=== PATIENT | male | born 1950 | race Caucasian/White ===

== ENCOUNTER 2023-11-30 18:45 | Emergency (ER) | payer MEDICARE, BC, SELFPAY ==
[2023-11-30] VITALS (7 sets, daily range): BP systolic 123–142; BP diastolic 53–80; PULSE 95–107; RESP 17–18; TEMP 36.5–36.8; O2SAT 96–99; BMI 30.1
--- NOTE | 2023-11-30 19:04 | CT_ITS ---
PROCEDURE INFORMATION: Exam: CTA Abdomen and Pelvis With Contrast Exam date and time: 11/30/2023 8:26 PM Age: 73 years old Clinical indication: Other: Vomiting, diarrhea; Abdominal pain; Acute; Additional info: Acute diffuse crampy abd pain, vomiting diarrhea TECHNIQUE: Imaging protocol: Computed tomographic angiography of the abdomen and pelvis with contrast. Exam focused on the arteries. 3D rendering (Not supervised by radiologist): MIP and/or 3D reconstructed images were created by the technologist. Radiation optimization: All CT scans at this facility use at least one of these dose optimization techniques: automated exposure control; mA and/or kV adjustment per patient size (includes targeted exams where dose is matched to clinical indication); or iterative reconstruction. Contrast material: ISOVUE 370; Contrast volume: 80 ml; Contrast route: INTRAVENOUS (IV); COMPARISON: No relevant prior studies available. FINDINGS: Tubes, catheters and devices: Stimulator device is seen over the left gluteal region with lead at the epidural space of the lower thoracic spine. Aorta: No aortic aneurysm. No aortic dissection. Celiac trunk and mesenteric arteries: No occlusion or significant stenosis. Renal arteries: No occlusion or significant stenosis. Right iliac arteries: No occlusion or significant stenosis. Left iliac arteries: No occlusion or significant stenosis. Other arteries: Mild atheromatous disease is demonstrated, but no major arterial stenosis/occlusion. No aneurysm. Liver: No mass. Gallbladder and biliary ducts: Unremarkable. No calcified stones. No ductal dilation. Pancreas: Unremarkable. No mass. No ductal dilation. Spleen: Unremarkable. No splenomegaly. Adrenal glands: Unremarkable. No mass. Kidneys and ureters: Unremarkable. No solid mass. No hydronephrosis. Stomach and bowel: Trace diverticulosis seen descending colon. No abnormal bowel thickening or dilation. Appendix: No evidence of appendicitis. Intraperitoneal space: No visible free fluid. Lymph nodes: Unremarkable. No enlarged lymph nodes. Urinary bladder: Unremarkable. No mass. Reproductive: Unremarkable as visualized. Bones/joints: Previous right L5 laminectomy. Soft tissues: Unremarkable. IMPRESSION: 1. Normal CT angiogram abdomen and pelvis. 2. No visible acute intra-abdominal abnormality. 3. Incidental findings above.
--- NOTE | 2023-11-30 19:09 | ECG_ITS ---
APPROVED REPORT Exam: Resting ECG HR:104 bpm ECG Measurements Heart Rate 104 AXES OH 195 P 64 QRSd 129 QRS -63 QT 349 T 34 QTc 409 Conclusion Sinus tachycardia Right bundle branch block Incomplete left bundle branch block Electronically signed by : DOMINICK CHOUDHURY, 11/30/2023 21:01:19
--- NOTE | 2023-11-30 19:10 | ED_ITS ---
Discharge Plan Disposition Patient Disposition: Home, Self-Care Prescriptions Prescriptions: New ondansetron 4 mg tablet,disintegrating 4 mg PO Q6H PRN (Reason: nausea and vomiting) Qty: 10 0RF Referrals Follow up/Referrals: Esther Medrano [Primary Care Provider] - See instructions Activity Restrictions/Add. Instructions Additional Instructions/Restrictions: Call your family doctor to establish care for this visit to the emergency department and schedule follow-up within 48 hours to ensure improvement. If you have any worsening of your condition or any other concerning signs or symptoms, return to the emergency department or your primary care doctor for further evaluation. Be sure to stay plenty hydrated trying to drink at least 60 ounces of fluid a day. Clinical Impressions Clinical Impression: Vomiting and diarrhea Instructions Patient Instructions: DI for Diarrhea and Traveler's Diarrhea -- Adult, DI for Diarrhea and Traveler's Diarrhea -- Child, DI for Nausea -- Adult, DI for Nausea -- Child Print Language Print Language: Czech Discharge ED Provider: Leon Barrera General Adult HPI General Chief complaint: Nausea/Vomiting/Diarrhea Stated complaint: V/D, body aches Time Seen by Provider: 11/30/23 18:49 History of Present Illness HPI narrative: Please note that above description of symptoms, in this electronic medical record under categorization of recalled from ER triage doctor by RN are reflective of an initial nursing assessment, however, is not reflective of my full history and physical exam that was personally taken and clarified. Consequentially, this preceding description of symptoms, which may include the patient's categorized chief complaint in the EMR, do not reflect my personal clinical impression, and the ultimate description of history of present illness and patient stated complaints should be deferred to this section of the note. Unless stated otherwise or congruent with this section of the note, additional signs, symptoms, or incongruence should be interpreted as inaccurate with my clinical impression. Related Data Previous Rx's ?Medication ?Instructions ?Recorded ondansetron 4 mg disintegrating 4 mg PO Q6H PRN nausea and 11/30/23 tablet vomiting #10 tabs Allergies Allergy/AdvReac Type Severity Reaction Status Date / Time ciprofloxacin [From Cipro] Allergy Hives Verified 11/30/23 19:13 Sulfa (Sulfonamide Allergy Hives Verified 11/30/23 19:13 Antibiotics) [facility] Disclaimer: The information contained in this section may have been updated after the patient was seen, as this information can be updated by other users. Social History Smoking Status: Current every day smoker alcohol intake: never current occupational status: retired Travel in the last 8 weeks: None ROS Obtained: Yes All systems reviewed & no additional complaints except as documented Physical Exam General General appearance: alert Head Head exam: atraumatic and normocephalic Eye Eye exam: Present normal appearance, PERRL and EOMI Neck Neck exam: Present normal inspection, full ROM and trachea midline Respiratory Respiratory exam: Present normal lung sounds bilaterally; Absent respiratory distress, wheezes, stridor, accessory muscle use or prolonged expiratory phase Cardiovascular Cardiovascular exam: Present normal rhythm, tachycardia and other (Pulses equal symmetric in upper and lower extremities) Abdominal Exam Abdominal exam: Present soft, distention and tenderness; Absent guarding, rebound, rigidity or pulsatile mass Abdominal tenderness: Present diffuse and mild Extremities Exam Extremities exam: Absent edema Neurological Exam Neurological exam: Present alert, oriented X3 and CN II-XII intact; Absent motor sensory deficit Skin Skin exam: Present warm and dry; Absent diaphoresis or erythema Medical Decision Making Medical Records Medical records reviewed: Yes I reviewed the patient's medical records. Screening: Per USPSTF and CDC recommendations, given the prevalence of disease in our region, it is our hospital?s policy to screen for HIV and viral Hepatitis for all patients aged 18 and over and those with ongoing risk factors. Baljinder Inquiry Pt receiving controlled substance: No Baljinder was queried for this patient: No Vital Signs: 11/30/23 18:46 11/30/23 19:01 11/30/23 19:32 Temperature 98.3 F Temperature Source Oral Pulse Rate 106 H 107 H Pulse Rate [Left Radial] 107 H Respiratory Rate 17 Blood Pressure 126/80 123/53 L Blood Pressure [Right Arm] 126/80 Blood Pressure Mean [Right Arm] 95 Blood Pressure Source [Right Arm] Automatic Cuff Blood Pressure Position [Right Arm] Sitting 02 Sat by Pulse Oximetry 98 96 98 Oxygen Delivery Method Room Air Room Air Room Air 11/30/23 20:00 11/30/23 20:31 11/30/23 21:00 Temperature Temperature Source Pulse Rate 103 H 103 H 96 H Pulse Rate [Left Radial] Respiratory Rate Blood Pressure 126/69 142/70 H 125/59 L Blood Pressure [Right Arm] Blood Pressure Mean [Right Arm] Blood Pressure Source [Right Arm] Blood Pressure Position [Right Arm] 02 Sat by Pulse Oximetry 99 96 97 Oxygen Delivery Method Room Air Lab Data Lab Results 11/30/23 19:05: VBG pH 7.39, VBG pCO2 38.2, VBG pO2 30.8, VBG HCO3 22.7 L, VBG Total CO2 23.9, VBG O2 Saturation 60.4, VBG Base Excess -2.2, VBG Lactic Acid 1.4 11/30/23 19:18: WBC 4.7 L, RBC 4.34 L, Hgb 12.6 L, Hct 37.4 L, MCV 86.1, MCH 29.1, MCHC 33.8, RDW 15.1, Plt Count 165, MPV 7.9, Neut % (Auto) 91.2 H, Lymph % (Auto) 4.0 L, [place] % (Auto) 3.1, Eos % (Auto) 1.5, Baso % (Auto) 0.3, Neut # (Auto) 4.2, Lymph # (Auto) 0.2 L, [place] # (Auto) 0.1, Eos # (Auto) 0.1, Baso # (Auto) 0.0, Total Counted 100, Neutrophils % (Manual) 97 H, Monocytes % (Manual) 3, Platelet Estimate Normal, Anisocytosis 1+, Microcytosis 1+, Sodium 131 L, Potassium 4.5, Chloride 99, Carbon Dioxide 24, Anion Gap 12.5, BUN 9, Creatinine 1.10, Estimated Creat Clear 82, Estimated GFR 66, Est GFR ( Amer) 80, G lucose 169 H, Calcium 9.6, Total Bilirubin 0.7, AST 35, ALT 24, Alkaline Phosphatase 42, Troponin I < 0.01, C-Reactive Protein 4.7 H, Total Protein 7.0, Albumin 4.6, Globulin 2.4, Albumin/Globulin Ratio 1.9 H, Lipase 92 11/30/23 20:05: SARS-CoV-2 (PCR) Not detected, Influenza A Untype (PCR) Not detected, Influenza Type B (PCR) Not detected 11/30/23 19:18 11/30/23 19:18 Orders (Tests/Meds): ED MEDICATIONS Discontinued Medications Generic Name Dose Route Start Last Admin Trade Name Freq PRN Reason Stop Dose Admin Sodium Chloride 1,000 mls @ 999 mls/hr 11/30/23 19:03 11/30/23 19:41 Sod Chlor 0.9% 1000ml Bag IV 11/30/23 20:03 999 mls/hr .Q1H1M ONE Administration Iopamidol 80 ml 11/30/23 20:29 11/30/23 20:30 Iopamidol-370 (76%);100ml Bottle IV 11/30/23 20:30 80 ml ONCE ONE Administration Ketorolac Tromethamine 15 mg 11/30/23 19:14 11/30/23 19:41 Ketorolac 30mg/Ml Vial IV 11/30/23 19:15 15 mg ONCE ONE Administration Ondansetron HCl 4 mg 11/30/23 19:03 11/30/23 19:41 Ondansetron 4mg/2ml Vial IV 11/30/23 19:04 4 mg ONCE ONE Administration Sodium Chloride 40 ml 11/30/23 20:29 11/30/23 20:30 0.9 % Sodium Chloride 50 Ml Vial IV 11/30/23 20:30 40 ml ONCE ONE Administration Sodium Chloride 10 ml 11/30/23 20:29 11/30/23 20:30 Sodium Chloride 0.9% 10ml Syr (Rad Only) IV 11/30/23 20:30 10 ml ONCE ONE Administration ORDERS Category Date Time Status CT angio abdomen pelvis Stat Cat Scan 11/30/23 19:04 Completed CRP [C-Reactive Protein] Stat Lab 11/30/23 19:18 Completed Complete Blood Count Auto Diff Stat Lab 11/30/23 19:18 Completed Comprehensive Metabolic Panel Stat Lab 11/30/23 19:18 Completed Lipase Stat Lab 11/30/23 19:18 Completed Rapid PCR Covid and Flu A/B Stat Lab 11/30/23 20:05 Completed Troponin I Q3H Lab 11/30/23 22:15 Ordered Troponin I Q3H Lab 12/01/23 01:15 Ordered Troponin I Stat Lab 11/30/23 19:18 Completed Urinalysis and Microscopic Stat Lab 11/30/23 19:04 Ordered Blood Culture Stat Micro 11/30/23 19:18 Ordered Venous Blood Gas Stat RT 11/30/23 19:05 Completed HEART Score History (anamnesis): Slightly suspicious ECG: Normal Age: >65 years Risk factors: 1-2 risk factors Troponin: </= normal limit HEART Score: 3 Medical Decision Narrative: This is a 73-year-old male with history of hypertension, hyperlipidemia, diabetes, anxiety and depression, spinal stimulator presenting with multiple complaints. Patient states that he was at a wedding a couple days prior to this, felt well at that time. Since that time, initially felt short of breath with cough. Today started having vomiting and diarrhea that is nonbloody, nonbilious, not mucousy. Associated with diffuse, crampy abdominal pain that is worse around the perimeter of his abdomen. No fevers or chills, urinary symptoms, chest pain, shortness of breath, syncope, diaphoresis, lower extremity swelling, or any other concerns. Has not noticed anything that makes it better. Minimally able to keep p.o. intake down. Last bowel movement was about 3 hours prior to this and was watery. History was obtained via conversation with patient. On arrival, patient hemodynamically stable, alert, oriented x4, appropriate, GCS 15, moving all extremities spontaneously, pupils equal and reactive to light. Full physical exam performed and significant for very well- appearing male who is in no acute distress. He is tachycardic 110 bpm. No murmurs gallops or rubs. Lungs are clear to auscultation. Patient's abdomen is soft, but distended and tender diffusely. No overlying skin changes. Bowel sounds are normal. Primarily tender around the perimeter of his abdomen, but he is diffusely tender. Differential includes gastritis, enteritis, mesenteric ischemia, aortic pathology, UTI, ACS, [place], pancreatitis, diabetic emergency, among others. Patient placed on continuous cardiac monitoring and continuous pulse ox with initial blood pressure 126/80, heart rate 107, saturation 98% on room air. Independent interpretation of EKG shows sinus tachycardia 104 bpm with right bundle branch block morphology QRS 129. MT 195, QTc 409. Patient was given fluids and Zofran, Toradol for symptomatic management and correction of underlying abnormalities. Workup independently interpreted and significant for nonactionable CBC, but relative neutrophilia. Nonactionable chemistry, normal kidney function. Troponin negative. Lipase negative. CT angiogram of the abdomen and pelvis independently interpreted and significant for no acute intra- abdominal abnormality, no vascular abnormality, etc. See radiology read for full review of final results. Heart score 3. On reevaluation, patient tolerating p.o. intake. Vital signs improved moderately after fluids. 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 Because patient at baseline without signs or symptoms of clinical decompensation, deemed appropriate for discharge. Results were relayed to patient who voiced understanding and were agreeable to outpatient management and follow up. I discussed my clinical impression with patient and answered all questions. At this time, the evidence for any other entities in the differential is insufficient to warrant any further testing or ED observation. This was explained as well. Advisory was given that persistent or worsening symptoms require further evaluation. I confirmed the understanding of this discussion. [employer] disclaimer Much of this encounter note is an electronic conditioning machine operator spoken language to printed text. Electronic conditioning machine operator of the spoken language may permit errors. Although I have reviewed the note, some errors may still exist. Critical Care Critical Care Time Critical Care Time: No
[2023-11-30 19:26] LABS: Lactate Venous 1.4 mmol/L (0.4-2.0); VBG Base Excess -2.2 mmol/L (-2.4-2.3); VBG HCO3 22.7 mmol/L (23-30); VBG Oxygen Saturation 60.4 % (50-70); VBG PCO2 38.2 mmol/L (35-51); VBG PH 7.39 mmol/L (7.31-7.41); VBG PO2 30.8 mmol/L (28-40); VBG Total CO2 23.9 mmol/L (23-27)
[2023-11-30 19:32] LABS: Basophils % 0.3 % (0.1-2.0); Eosinophils # 0.1 K/mm3 (0.0-0.4); Eosinophils % 1.5 % (0.1-12.0); Hematocrit 37.4 % (42.0-52.0); Hemoglobin 12.6 g/dL (14.1-18.0); Lymphocytes # 0.2 K/mm3 (0.7-4.5); Mean Corpuscular HGB Conc 33.8 g/dL (31.8-35.4); Mean Corpuscular Hemoglobin 29.1 pg (27.0-31.2); Mean Corpuscular Volume 86.1 fl (80-94); Mean Platelet Volume 7.9 fl (7.4-10.4); Monocytes # 0.1 K/mm3 (0.1-1.0); Monocytes % 3.1 % (1.7-9.3); Neutrophils # 4.2 K/mm3 (1.8-7.8); Neutrophils % 91.2 % (37.0-80.0); Platelet Count 165 K/mm3 (142-424); Red Blood Count 4.34 M/mm3 (4.60-6.20); Red Cell Distribution Width 15.1 % (11.5-17.5); White Blood Count 4.7 K/mm3 (4.8-10.8)
[2023-11-30 19:34] LABS: MANUAL DIFFERENTIAL MANUAL DIFFERENTIAL (MANUAL DIFF)
[2023-11-30 19:41] LABS: Albumin Level 4.6 g/dl (3.5-5.0); Chloride 99 mmol/L (98-107); Potassium 4.5 mmoL/L (3.5-5.1); Sodium 131 mmol/L (136-145)
[2023-11-30] MEDS: 0.9 % SODIUM CHLORIDE 1000ML 1,000 ML 999 ML IV (19:41)
[2023-11-30] MEDS: ONDANSETRON 4MG/2ML VIAL 4 MG IV (19:41)
[2023-11-30] MEDS: KETOROLAC 30MG/ML VIAL 15 MG IV (19:41)
[2023-11-30 19:44] LABS: Alanine Aminotransferase 24 U/L (12-78); Albumin/Globulin Ratio 1.9 (1.1-1.8); Alkaline Phosphatase 42 U/L (38-126); Anion Gap 12.5 mEq/L (5-15); Aspartate Amino Transferase 35 U/L (17-59); Bilirubin,Total 0.7 mg/dl (0.2-1.3); Blood Urea Nitrogen 9 mg/dl (9-20); Calcium 9.6 mg/dl (8.4-10.2); Carbon Dioxide 24 mmol/L (22.0-30.0); Creatinine Clearance Estimated 82 mL/min (50-200); Estimated Glomerular Filt Rate 66 ml/min (>60); GFR (African American) 80 ML/MIN (>60); Globulin 2.4 g/dL (1.3-3.2); Glucose 169 mg/dl (74-100); Lipase 92 U/L (23-300)
[2023-11-30 19:50] LABS: C-Reactive Protein 4.7 mg/L (0-4)
[2023-11-30 20:02] LABS: Troponin I < 0.01 ng/ml (0.00-0.034)
[2023-11-30 20:08] LABS: Monocytes % 3 % (2-9); Neutrophils % 97 % (42-76); Total Cells Counted 100
[2023-11-30 20:09] LABS: Anisocytosis 1+; Microcytosis 1+; Platelet Estimate Normal
[2023-11-30 20:12] LABS: Coronavirus 19, PCR Not Detected (NotDetected); Influenza A, PCR Not Detected (NotDetected); Influenza B, PCR Not Detected (NotDetected)
--- NOTE | 2023-11-30 20:22 | PC.NURSE ---
pt to ct scan
[2023-11-30] MEDS: IOPAMIDOL-370 (76%);100ML BOTTLE 80 ML IV (20:30)
[2023-11-30] MEDS: SODIUM CHLORIDE 0.9% 10ML SYR (RAD ONLY) 10 ML IV (20:30)
[2023-11-30] MEDS: 0.9 % SODIUM CHLORIDE 50 ML VIAL 40 ML IV (20:30)
--- NOTE | 2023-11-30 21:36 | PC.NURSE ---
Dr. Barrera at bedside
--- NOTE | 2023-11-30 21:37 | PC.NURSE ---
I collected urine sample and submitted to lab. Dr. Barrera states it is ok to d/c pt now. He also states he does not want the 2nd set of blood cx.
[2023-11-30 21:38] LABS: Microscopic, Urine URINE MICROSCOPIC (MICROSCOPIC)
[2023-11-30 21:55] LABS: Bacteria,Urine Trace /lpf; Squamous Epithelial Cell,Urine Occasional #/hpf (0-5)
[2023-11-30 21:57] LABS: Appearance,Urine CLEAR (Clear); Blood, Urine Negative (Negative); Color,Urine YELLOW (Yellow); Glucose,Urine (UA) Negative (Negative); Ketones,Urine TRACE (Negative); Leukocyte Esterase,Urine Negative (Negative); Nitrate,Urine Negative (Negative); Protein,Urine Negative (Negative); Urobilinogen,Urine 0.2 EU/dl (0.2)
[2023-11-30 22:00] LABS: Bilirubin,Urine 1+ (Negative)
== END 2023-11-30 21:54 | disposition home or self-care (01) ==
PROVIDERS: Emergency Provider Emergency Medicine; PCP Family Medicine
DX: R11.2 Nausea with vomiting, unspecified (principal); R19.7 Diarrhea, unspecified; R10.9 Unspecified abdominal pain
CPT/HCPCS: 74174; 80053; 81001; 82803; 83690; 84484; 85007; 85025; 85027; 86140; 87040; 87636; 93005; 96360; 96361; 96374; 96375; 99285; J1885; J2405; J7030; Q9967